=== PATIENT | male | born 1955 | race Caucasian/White ===

== ENCOUNTER 2016-03-10 09:18 | Emergency (ER) | payer BC ==
[2016-03-10] MEDS ORDERED: CLINDAMYCIN 900 MG/50 ML 50 ML IV ONE ×2 (09:39→09:47)
[2016-03-10] MEDS ORDERED: IBUPROFEN 800 MG TABLET PO STA (09:39)
[2016-03-10] MEDS ORDERED: IBUPROFEN 800 MG TABLET PO ONE (09:47)
[2016-03-10] MEDS ORDERED: TETANUS/DIPHTHERIA/PERTUSSIS 0.5 ML SYRINGE IM ONE (09:48)
[2016-03-10] MEDS ORDERED: LIDOCAINE 1%-EPI 1:100000 20 ML MDV ONE (10:03)
== END 2016-03-10 12:30 | disposition home or self-care (01) ==
DX: L02.415 Cutaneous abscess of right lower limb (principal); Z87.891 Personal history of nicotine dependence; Z23 Encounter for immunization
CPT/HCPCS: 10060; 36415; 73562; 80048; 85025; 85651; 86140; 87070; 87077; 87181; 87205; 90715; 96374; 99283; 99284; A9270